=== PATIENT | female | born 1990 | race Caucasian/White ===

== ENCOUNTER 2021-05-18 13:54 | Emergency (ER) | payer SELFPAY ==
[~2021-05-18] VITALS: Ht 162.6 cm; Wt 99.3 kg
[2021-05-18 16:36] LABS: BASOPHIL 0.5 % (0-2); EOSINOPHIL 0.2 % (0-5); HCT 44.7 % (37.0-47.0); HGB 15.1 g/dl (12.5-16.0); LYMPHOCYTE 9.6 % (15-48); MCH 29.2 pg (25.0-31.0); MCHC 33.8 g/dL (32.0-36.0); MCV 86.5 fL (78.0-100.0); MONOCYTE 18.8 % (0-12); MPV 8.9 fL (6.0-9.5); NEUTROPHIL 70.7 % (41-80); NRBC 0; PLT 321 K/uL (150-400); RBC 5.17 M/uL (4.20-5.40); WBC 6.4 K/uL (4.0-10.5)
[2021-05-18 16:54] LABS: ALBUMIN 3.8 g/dL (3.4-5.0); BILIRUBIN - TOTAL 0.2 mg/dL (0.2-1.0); BUN/CREAT RATIO (CALC) 11.5 RATIO; CREATININE 0.61 mg/dL (0.51-0.95); GLOBULIN (CALCULATION) 4.3 g/dL; POTASSIUM 3.8 mmol/L (3.5-5.1); TOTAL PROTEIN 8.1 g/dL (6.4-8.2)
[2021-05-18 16:58] LABS: BILIRUBIN NEGATIVE (NEGATIVE); BLOOD NEGATIVE Ery/uL (NEGATIVE); CLARITY CLEAR (CLEAR); COLOR YELLOW (YELLOW); GLUCOSE (U) NORMAL (NORMAL); LEUKOCYTES NEGATIVE Leu/uL (NEGATIVE); NITRITE NEGATIVE (NEGATIVE); PROTEIN NEGATIVE (NEGATIVE); SPECIFIC GRAVITY 1.015 (1.001-1.030); UROBILINOGEN 0.2 mg/dL (0.2-1.0)
[2021-05-18 17:07] LABS: URINARY WBC RARE
[2021-05-18 17:08] LABS: SQUAMOUS EPITHELIAL CELLS RARE
[2021-05-18] MEDS ORDERED: ONDANSETRON ODT4 MG PO (17:31)
== END 2021-05-18 18:01 | disposition home or self-care (01) ==
LOC: FER 13:54
PROVIDERS: Physician Assistant
DX: R11.12 Projectile vomiting (principal)
CPT/HCPCS: 36415; 80053; 81001; 83690; 85025; J2270; J2405; J7030